=== PATIENT | male | born 1990 | race Caucasian/White ===

== ENCOUNTER 2017-07-03 19:42 | Emergency (ER) | payer OTHER ==
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
[2017-07-03 23:02] VITALS: BP 140/90
--- NOTE | 2017-07-04 07:45 | RAD ---
INDICATION: Left wrist injury COMPARISON: None TECHNIQUE: AP, lateral, and oblique views were obtained. FINDINGS: The bony structures, joint spaces, and soft tissues are normal for age. IMPRESSION: NEGATIVE EXAMINATION.
== END 2017-07-03 23:02 | disposition home or self-care (01) ==
LOC: ED 19:42
DX: S69.91XA Unspecified injury of right wrist, hand and finger(s), initial encounter (principal); V18.4XXA Pedal cycle driver injured in noncollision transport accident in traffic accident, initial encounter; Y93.55 Activity, bike riding; Y92.9 Unspecified place or not applicable; T14.8 Other injury of unspecified body region
CPT/HCPCS: 99282